=== PATIENT | female | born 1985 | race Caucasian/White ===

== ENCOUNTER 2021-05-31 12:34 | Emergency (ER) | payer BC ==
[~2021-05-31 12:34] MED LIST: NAPROSYN500 MG PO; NORCO 7.5-3251 EACH PO; ZOFRAN4 MG PO
[2021-05-31 13:50] LABS: HEMOGLOBIN 12.9 gm/dl (12.3-15.3); RED BLOOD COUNT 4.35 M/UL (4.00-5.10); WHITE BLOOD COUNT 7.6 K/UL (4.5-11.0)
[2021-05-31 14:20] LABS: BUN/CREATININE RATIO 8 (0-10)
== END 2021-05-31 14:49 | disposition home or self-care (01) ==
LOC: ER1 12:34
PROVIDERS: Nurse Practitioner
DX: R03.0 Elevated blood-pressure reading, without diagnosis of hypertension (principal)
CPT/HCPCS: 71045; 80048; 80307; 81001; 82550; 82553; 83874; 84484; 85025; 93005; 99284